=== PATIENT | male | born 1975 | race Caucasian/White ===

== ENCOUNTER → 2018-03-23 | Outpatient (CLI) | payer OTHER | END | disposition home or self-care (01) | LOC: CVU 15:48 | PROVIDERS: ATTEND Internal Medicine Cardiovascular Disease | DX: R00.1 Bradycardia, unspecified (principal); R00.2 Palpitations; Z82.49 Family history of ischemic heart disease and other diseases of the circulatory system | CPT/HCPCS: 93306 ==

== ENCOUNTER 2018-04-27 09:02 | Day surgery (SDC) | payer OTHER ==
[~2018-04-27] VITALS: Ht 190.5 cm; Wt 93.2 kg
[2018-04-27 09:32] VITALS: BP 139/86
[2018-04-27] MEDS ORDERED: no home medications (09:38)
== END 2018-04-27 11:30 | disposition home or self-care (01) ==
LOC: CACL 09:02
PROVIDERS: ATTEND Internal Medicine Cardiovascular Disease
DX: R55 Syncope and collapse (principal); R42 Dizziness and giddiness; R53.83 Other fatigue; R00.1 Bradycardia, unspecified; R00.2 Palpitations; E78.5 Hyperlipidemia, unspecified
CPT/HCPCS: 93660